=== PATIENT | female | born 1945 | race Caucasian/White ===

== ENCOUNTER 2018-09-09 14:06 | Inpatient (IN) ==
[2018-09-09] MEDS ORDERED: SODIUM CHLORIDE 0.9% 1000ML 1,000 ML IV ONE (14:46)
--- NOTE | 2018-09-09 14:59 | Emergency Department Note ---
Entered by Yolie Eisenberg acting as a scribe for Jah Zavaleta DO History of Present Illness General Chief complaint: Fever Stated complaint: FEVER - SENT FROM [facility] Time Seen by Provider: 09/09/18 14:13 Source: patient Mode of arrival: ambulatory Limitations: no limitations History of Present Illness Onset (ago): day(s) 2 Location: head (global), upper extremity (global) and lower extremity (global) Maximum Pain Intensity: 0 Associated symptoms: + fever/chills (The patient complains of fever. The patient denies chills. ), + loss of appetite, + malaise, + weakness and + other (The patient denies dysuria, urinary frequency, hematuria, URI symptoms, abdominal pain, changes in bowel movements, body aches, and lightheadedness. ); no chest pain, no nausea/vomiting and no shortness of breath Treatments prior to arrival: other (650 Tylenol) The patient is a 73 year old female with a history of hypertension and hyperlipidemia who presents to the ED with complaints of a constant fever that onset 2 days ago. The patient states that she was referred to the ED by [facility]. She reports that she has felt weak for the past 2 days. The patient complains of weakness, malaise, and loss of appetite. The patient denies chills, dysuria, urinary frequency, hematuria, nausea, vomiting, URI symptoms, chest pain, shortness of breath, abdominal pain, changes in bowel movements, body aches, and lightheadedness. The patient denies fever but had a temperature of 101.4 degrees at [facility]. She received 650 mg of Tylenol. The patient had a negative chest x-ray and UA that showed ketones, moderate to large blood, and proteins. The patient states that she fell last night while getting up from a chair because she lost her balance. She denies hitting her head. The patient notes that she takes Metoprolol. She denies smoking, drinking, and drug use. Home Medications Home Medications Medication Instructions Recorded Confirmed Type atorvastatin 80 mg PO DAILY 09/09/18 09/09/18 History metoprolol succinate 25 mg PO DAILY 09/09/18 09/09/18 History Allergies Allergy/AdvReac Type Severity Reaction Status Date / Time No Known Allergies Allergy Unverified 09/09/18 14:43 Past Med/Surg History Medical History HTN (hypertension) HLD (hyperlipidemia) No pertinent family history Surgical History No pertinent past surgical history Family History Other No pertinent family history Social History Preferred Language: Malay Communication Ability: Effective Visual Impairment: No Limitations Hearing Ability: Normal Feels Safe at Home: Yes Smoking Status: Never smoker Hx Alcohol Use: No Hx Substance Use: No Review of Systems See HPI for pertinent positives & negatives. and A total of 10 systems reviewed and were otherwise negative Physical Exam Vital Signs Vital Signs - 24 hr 09/09/18 14:09 09/09/18 15:33 09/09/18 16:23 Temperature 36.8 C Temperature Source Oral Sepsis Recent Fever Within 48 Hours No Sepsis Action Taken by Nursing No Action Required Pulse Rate 73 Pulse Rate [Left Finger] 58 L 60 Respiratory Rate 20 22 20 Respiratory Effort / Characteristics Non-Labored Non-Labored Respiratory Depth Normal Normal Respiratory Pattern Regular Regular Blood Pressure 114/66 Blood Pressure [Left Arm] 113/63 117/62 Blood Pressure Mean 82 Blood Pressure Mean [Left Arm] 79 80 Pulse Oximetry 95 93 93 Oxygen Delivery Method Room Air Room Air GENERAL: Patient is awake alert in no acute distress patient is resting comfortably and showing no signs of anxiety EYES: The conjunctivae are clear. The pupils are round and reactive. EARS, NOSE, MOUTH AND THROAT: The nose is without any evidence of any deformity. Mucous membranes are moist tongue is midline NECK: The neck is nontender and supple. RESPIRATORY: Normal respiratory effort is noted there is no evidence of wheezing rhonchi or rales CARDIOVASCULAR: Regular rate and rhythm noted there no murmurs rubs or gallops normal S1 normal S2 GASTROINTESTINAL: The abdomen is soft. Bowel sounds are present in all quadrants. Abdomen is nontender PELVIS: The Pelvis is stable. No tenderness to palpation is noted. SKIN: There is no obvious evidence of any rash. There are no petechiae, pallor o r cyanosis noted. NEUROLOGIC: Patient is awake alert and oriented x3 strength is symmetric patellar reflexes are 2+ bilaterally Course 1417: Past medical records reviewed. The patient was evaluated in room A10. A complete history and physical examination was performed. 1640: Call out to hospitalist service. 1605: I reviewed the patient's case with Juani Dyerist Arnold Arana. She will evaluate the patient for further management. Consultations Consultation #1: [id number]: I reviewed the patient's case with Juani Arana. She will evaluate the patient for further management. Time: 16:05 Administered Medications Discontinued Medications Doxycycline Hyclate (Vibramycin) 100 mg PO NOW STA Stop: 09/09/18 16:15 Last Admin: 09/09/18 16:57 Dose: 100 mg Documented by: [id number] Sodium Chloride (Nss 1000ml) 1,000 mls @ 999 mls/hr IV .Q1H1M ONE Stop: 09/09/18 15:46 Last Infusion: 09/09/18 16:21 Dose: 0 mls/hr Documented by: [id number] Admin: 09/09/18 14:59 Dose: 999 mls/hr Documented by: [id number] Ceftriaxone Sodium 1,000 mg/ (Dextrose) 60 mls @ 100 mls/hr IV NOW STA; Protocol Stop: 09/09/18 16:49 Last Admin: 09/09/18 16:57 Dose: 100 mls/hr Documented by: [id number] Medical Decision Making Differential Diagnosis Differential diagnoses: Viral syndrome, otitis, pharyngitis, pneumonia, influenza, meningitis, urinary tract infection, sepsis, bacteremia, as well as others were entertained. Medical Records Attestation: I reviewed the patient's medical records. Home Medications Current Medication List: was personally reviewed by me Laboratory Data Attestation: I reviewed the patient's lab results. Result diagrams: 09/09/18 14:54 09/09/18 14:54 Lab Results 09/09/18 09/09/18 09/09/18 Range/Units 14:46 14:54 14:54 WBC 4.24 L (4.8-10.8) K/uL RBC 4.45 (4.2-5.4) M/uL Hgb 13.8 (12.0-16.0) g/dL Hct 39.0 (37-47) % MCV 87.6 (80-100) fL MCH 31.0 (25-34) pg MCHC 35.4 (32-36) g/dL RDW Std Deviation 44.6 (36.4-46.3) fL RDW Coeff of Lucius 13.8 (11.5-14.5) % Plt Count 91 L (130-400) K/uL MPV 10.2 (7.4-10.4) fL Immature Gran % (Auto) 0.2 % Neut % (Auto) 82.6 % Lymph % (Auto) 13.4 % [place] % (Auto) 3.8 % Eos % (Auto) 0.0 % Baso % (Auto) 0.0 % Immature Gran # (Auto) 0.01 (0.00-0.02) K/uL Neut # (Auto) 3.50 (1.4-6.5) K/uL Lymph # (Auto) 0.57 L (1.2-3.4) K/uL [place] # (Auto) 0.16 (0.11-0.59) K/uL Eos # (Auto) 0.00 (0-0.5) K/uL Baso # (Auto) 0.00 (0-0.2) K/uL Toxic Vacuolation 2+ Platelet Estimate Decreased L (Normal) Giant Platelets 1+ Schistocytes Occasional ESR 24 H (0-21) mm/hr Sodium 129 L (136-145) mmol/L Potassium 3.5 (3.5-5.1) mmol/L Chloride 98 (98-107) mmol/L Carbon Dioxide 21 (21-32) mmol/L Anion Gap 9.0 (3-11) BUN 18 (7-18) mg/dl Creatinine 1.00 (0.6-1.2) mg/dl Est Cr Clr Drug Dosing 50.8 ml/min Est GFR ( Amer) 64.3 Est GFR (Non-Af Amer) 55.5 BUN/Creatinine Ratio 18.2 (10-20) Glucose 138 H (70-99) mg/dl Calcium 8.2 L (8.5-10.1) mg/dl Total Bilirubin 0.8 (0.2-1) mg/dl AST 56 H (15-37) U/L ALT 39 (12-78) U/L Alkaline Phosphatase 78 (45-117) U/L Troponin I 0.123 H* (0-0.045) ng/ml C-Reactive Protein 11.10 H (0-0.29) mg/dl Total Protein 7.0 (6.4-8.2) gm/dl Albumin 3.5 (3.4-5.0) gm/dl Globulin 3.5 (2.5-4.0) gm/dl Albumin/Globulin Ratio 1.0 (0.9-2) Lyme Disease IgG Ab (Negative) Lyme Disease IgM Ab (Negative) 09/09/18 Range/Units 15:04 WBC (4.8-10.8) K/uL RBC (4.2-5.4) M/uL Hgb (12.0-16.0) g/dL Hct (37-47) % MCV (80-100) fL MCH (25-34) pg MCHC (32-36) g/dL RDW Std Deviation (36.4-46.3) fL RDW Coeff of Lucius (11.5-14.5) % Plt Count (130-400) K/uL MPV (7.4-10.4) fL Immature Gran % (Auto) % Neut % (Auto) % Lymph % (Auto) % [place] % (Auto) % Eos % (Auto) % Baso % (Auto) % Immature Gran # (Auto) (0.00-0.02) K/uL Neut # (Auto) (1.4-6.5) K/uL Lymph # (Auto) (1.2-3.4) K/uL [place] # (Auto) (0.11-0.59) K/uL Eos # (Auto) (0-0.5) K/uL Baso # (Auto) (0-0.2) K/uL Toxic Vacuolation Platelet Estimate (Normal) Giant Platelets Schistocytes ESR (0-21) mm/hr Sodium (136-145) mmol/L Potassium (3.5-5.1) mmol/L Chloride (98-107) mmol/L Carbon Dioxide (21-32) mmol/L Anion Gap (3-11) BUN (7-18) mg/dl Creatinine (0.6-1.2) mg/dl Est Cr Clr Drug Dosing ml/min Est GFR ( Amer) Est GFR (Non-Af Amer) BUN/Creatinine Ratio (10-20) Glucose (70-99) mg/dl Calcium (8.5-10.1) mg/dl Total Bilirubin (0.2-1) mg/dl AST (15-37) U/L ALT (12-78) U/L Alkaline Phosphatase (45-117) U/L Troponin I (0-0.045) ng/ml C-Reactive Protein (0-0.29) mg/dl Total Protein (6.4-8.2) gm/dl Albumin (3.4-5.0) gm/dl Globulin (2.5-4.0) gm/dl Albumin/Globulin Ratio (0.9-2) Lyme Disease IgG Ab Negative (Negative) Lyme Disease IgM Ab Negative (Negative) ECG Data Attestation: I personally reviewed and interpreted this ECG as follows: Indication: weakness Rate (beats per minute): 68 Findings: + other (No acute ST segments); no ectopy Comparison ECG Date: no prior available Blood Pressure Blood Pressure Findings: Normal blood pressure MDM Narrative The patient is a 73-year-old female who presented to the emergency department for generalized weakness. The patient initially presented to an urgent care center was sent to the emergency department because of fever. The patient was found to have hematuria at the urgent care center. The patient was also found to have lab abnormalities which were felt to be consistent with tickborne illness. She was treated with IV fluids as well as IV antibiotics. We discussed patient's laboratory and radiographic studies with her. She was also found to have an elevated troponin. She had no EKG changes that I thought were consistent with pericarditis although given her acute condition it is possible this represents myocarditis. Because of this we discussed her case with the on- call [facility] hospitalist group. They have agreed to evaluate the patient in the emergency department for further management and disposition. Impression & Plan Fever, Thrombocytopenia, Elevated troponin, Anaplasmosis Discharge Plan Visit Data Chief Complaint: Fever Stated Complaint: FEVER - SENT FROM [facility] ED Provider: Jah Zavaleta ED Midlevel Provider: Katlin Farrell Discharge Problem: Fever, Thrombocytopenia, Elevated troponin, Anaplasmosis Patient Disposition: Being Evaluated by Hospitalist Forms Stand Alone Forms: My [facility] [place] Prescriptions Prescriptions: No Action atorvastatin 80 mg Tablet 80 mg PO DAILY RF: 0 metoprolol succinate 25 mg Tablet Extended Release 24 Hr 25 mg PO DAILY RF: 0 Referrals Referrals: PCP,NO [Primary Care Provider] - Discharge Problem: Fever Qualifiers: Fever type: unspecified Qualified Code(s): R50.9 - Fever, unspecified The scribe's documentation has been prepared under my direction and personally reviewed by me in its entirety. I confirm that the note above accurately reflects all work, treatment, procedures, and medical decision making performed by me.
[2018-09-09 15:22] LABS: Albumin Level 3.5 gm/dl (3.4-5.0); BUN Creatinine Ratio 18.2 (10-20); Calcium 8.2 mg/dl (8.5-10.1); Creatinine Clr Calc Pharmacy 50.8 ml/min; Est GFR (African American) 64.3; Est GFR (Non-African American) 55.5; Potassium 3.5 mmol/L (3.5-5.1)
[2018-09-09 15:35] LABS: Bilirubin,Total 0.8 mg/dl (0.2-1); Globulin 3.5 gm/dl (2.5-4.0); Troponin I 0.123 ng/ml (0-0.045)
[2018-09-09 15:42] LABS: Giant Platelets 1+; Hemoglobin 13.8 g/dL (12.0-16.0); Immature Granulocytes # (auto) 0.01 K/uL (0.00-0.02); Immature Granulocytes % (auto) 0.2 %; Lymphocytes # (auto) 0.57 K/uL (1.2-3.4); Lymphocytes % (auto) 13.4 %; Mean Corpuscular Hgb Conc 35.4 g/dL (32-36); Mean Corpuscular Volume 87.6 fL (80-100); Mean Platelet Volume 10.2 fL (7.4-10.4); Monocytes # (auto) 0.16 K/uL (0.11-0.59); Monocytes % (auto) 3.8 %; Neutrophils % (auto) 82.6 %; Platelet Count 91 K/uL (130-400); Platelet Estimate Decreased (Normal); RDW Coefficient of Variation 13.8 % (11.5-14.5); RDW Standard Deviation 44.6 fL (36.4-46.3); Red Blood Count 4.45 M/uL (4.2-5.4); Schistocytes Occasional; Toxic Vacuolation 2+; White Blood Count 4.24 K/uL (4.8-10.8)
[2018-09-09 15:52] LABS: C Reactive Protein 11.1 mg/dl (0-0.29)
[2018-09-09] MEDS ORDERED: cefTRIAXone SODIUM 1,000 MG in DEXTROSE 5% 50 ML IV STA (16:14)
[2018-09-09] MEDS ORDERED: DOXYCYCLINE HYCLATE 100 MG CAP PO STA (16:14)
[2018-09-09 16:45] LABS: Lyme Ab IgG w/WB Rflx Negative (Negative); Lyme Ab IgM w/WB Rflx Negative (Negative)
--- NOTE | 2018-09-09 16:45 | Emergency Department Note ---
ED Visit Note I assisted in the care of this patient with Dr. Zavaleta. Please see his note for further details. . Resident Activity Tracking Resident Involvement: Resident Care Provided Care Provided: Adult ED
--- NOTE | 2018-09-09 17:47 | History & Physical Report ---
Date of Service September 09, 2018 Assessment & Plan (1) Anaplasmosis: This is a 73-year-old female with PMH of HTN and HLD who presents with generalized weakness and fatigue x 3 days and is found to have suspected anaplasmosis. -Initially febrile today with leukopenia of 4, thrombocytopenia of 91, sodium 129 and AST of 56 -Peripheral smear ordered with official read pending -Anaplasmosis and Lyme serology ordered -Given Rocephin and doxycycline in ED -Continue doxycycline 100 mg twice daily, IV fluids -Monitor lab work (2) Elevated troponin: Troponin mildly elevated at 0.123 in the setting of suspected anaplasmosis -Denies chest pain, no history of CAD, no acute EKG changes -Trend troponin, monitor on telemetry (3) HTN (hypertension): Continue Toprol (4) HLD (hyperlipidemia): Continue atorvastatin DVT Ppx: SCDs in setting of acute thrombocytopenia Code status: FULL PCP: Sierra Dispo: Admitted to [facility]. Plan to return home once medically stable. Patient seen in collaboration with Dr. Wright. Please see addendum. History of Present Illness Chief Complaint: Generalized weakness, fatigue Primary Care Provider: JERICHO PCP This is a 73-year-old female with PMH of HTN and HLD who presents with generalized weakness and fatigue x 3 days. Patient has been feeling very tired and generally weak for the past 3 days with decreased appetite. Was seen by [facility] today and found to be febrile at 101.4 F. Was sent to ED for further evaluation. Upon arrival was found to have leukopenia 4k, thrombocytopenia of 91 and sodium of 129. Also found to have mild troponin elevation of 0.123. Peripheral smear was sent and radiologist called ED provider with concern for anaplasmosis. Patient denies any recent tick bites but states she lives in a [facility] area and when it be surprised if she got one. Has been outside a lot lately. Denies any chills, lightheadedness, headache, visual changes, chest pain, palpitations, shortness of breath, nausea, vomiting, abdominal pain, dysuria, diarrhea or constipation. Patient was given a dose of Rocephin and doxycycline in the ED along with IV fluids. Will be admitted for further treatment of suspected anaplasmosis. Allergies Allergy/AdvReac Type Severity Reaction Status Date / Time No Known Allergies Allergy Unverified 09/09/18 14:43 Home Medications Home Medications Medication Instructions Recorded Confirmed Type aspirin 81 mg PO DAILY 09/09/18 09/09/18 History atorvastatin 80 mg PO DAILY 09/09/18 09/09/18 History calcium-mag oxide-vitamin D3 1 cap PO DAILY 09/09/18 09/09/18 History cholecalciferol (vitamin D3) 2,000 unit PO DAILY 09/09/18 09/09/18 History coenzyme Q10 100 mg PO DAILY 09/09/18 09/09/18 History [id number]-vit C-Mn 1 tab PO DAILY 09/09/18 09/09/18 History loratadine 10 mg PO DAILY PRN 09/09/18 09/09/18 History magnesium 400 mg PO DAILY 09/09/18 09/09/18 History metoprolol succinate 25 mg PO DAILY 09/09/18 09/09/18 History omega-3 fatty acids 1,250 mg PO DAILY 09/09/18 09/09/18 History doxycycline hyclate 100 mg PO BID@1000,2200 8 Days #16 09/11/18 Rx cap Past Med/Surg History Medical History HTN (hypertension) (Chronic) HLD (hyperlipidemia) (Chronic) Surgical History No pertinent past surgical history (Chronic) Family History Other Heart disease Social History Preferred Language: Egyptian Communication Ability: Effective Visual Impairment: No Limitations Hearing Ability: Normal Nursing Professor Required: No Beliefs That Will Affect Care: None Current Living Situation: Alone Other Information That Helps Us Care for You: No Feels Safe at Home: Yes Safety Concerns: Feels Safe At This Time Smoking Status: Never smoker Do You Dip or Chew Tobacco: No Second Hand Exposure: No Tobacco Cessation Education Requested by Patient: No Hx Alcohol Use: Yes Hx Substance Use: No Review of Systems Review of Systems: At least ten systems reviewed and negative except as noted in the HPI. Physical Exam Physical Exam: General Appearance: WD/WN, no apparent distress, appears acutely ill Head: normocephalic, atraumatic Eyes: normal inspection, PERRL, EOMI ENT: hearing grossly normal, pharynx normal (dry mucous membranes) Neck: supple, no JVD, no adenopathy Respiratory/Chest: lungs clear to auscultation. No wheezes, rales or rhonci. No respiratory distress or accessory muscle use Cardiovascular: regular rate, rhythm, no murmur, normal peripheral pulses Abdomen/GI: normal bowel sounds, soft, non-tender to palpation Extremities/Musculoskelatal: normal inspection, no calf tenderness, normal capillary refill, no pedal edema Neurologic/Psych: alert, normal mood/affect, oriented x 3 Skin: normal color, warm/dry Results & Data Vital Signs (Past 12 Hours) Vital Signs Temp Pulse Pulse Resp BP BP Pulse Ox 09/09/18 16:23 60 20 117/62 93 09/09/18 15:33 58 L 22 113/63 93 09/09/18 14:09 36.8 C 73 20 114/66 95 Laboratory Results Short CBC 09/09/18 Range/Units 14:54 WBC 4.24 L (4.8-10.8) K/uL Hgb 13.8 (12.0-16.0) g/dL Hct 39.0 (37-47) % Plt Count 91 L (130-400) K/uL BMP 09/09/18 14:54 Sodium 129 L Potassium 3.5 Chloride 98 Carbon Dioxide 21 BUN 18 Creatinine 1.00 Glucose 138 H Calcium 8.2 L Cardiac Enzymes 09/09/18 Range/Units 14:54 Troponin I 0.123 H* (0-0.045) ng/ml Liver Function 09/09/18 Range/Units 14:54 Total Bilirubin 0.8 (0.2-1) mg/dl AST 56 H (15-37) U/L ALT 39 (12-78) U/L Alkaline Phosphatase 78 (45-117) U/L Albumin 3.5 (3.4-5.0) gm/dl Diagnostic Findings CXR: IMPRESSION: 1. Cardiomegaly and mild nonspecific interstitial thickening 2. No evidence of focal pulmonary consolidation Supervising Physician Co-Signing Physician Notes Attending Addendum: delayed entry date of service as noted above completed 09/13/18 care coordinated with THERESE Rhoades please refer to her notes for full details, I agree with her notes patient seen and examined, records reviewed by myself as well on exam, patient seen resting in bed, comfortable states she is tired feels somewhat better compared to admission no other symptoms VS noted and reviewed oriented x 3 , not in distress, speaks in sentences with no effort nor accessory muscle use normal rate, regular rhythm, no murmurs clear breath sounds bilaterally non distended, soft, nontender no bipedal edema, erythema, warmth no neuro deficits WBC 4.2 Hg 13.8 Crea 0.75 ASSESSMENT AND PLAN ANASPLASMOSIS monitor Plt, LFTs Doxycycline PO BID ELEVATED TROPONIN, MILD no cardiac symptoms EKG no acute ischemia trend troponins other diagnoses and plan of care as per THERESE Rhoades's notes Germán Wright MD
[2018-09-09] MEDS ORDERED: POLYETHYLENE (MIRALAX) 17 GM PACK PO PRN (19:03)
[2018-09-09] MEDS ORDERED: ONDANSETRON INJ 2 MG/ML 2 ML VIAL IV PRN (19:03)
[2018-09-09] MEDS ORDERED: ACETAMINOPHEN 325 MG TAB PO PRN (19:03)
[2018-09-09] MEDS ORDERED: SODIUM CHLORIDE 0.9% 1000ML 1,000 ML IV SCH (20:00)
--- NOTE | 2018-09-09 20:50 | XRay Report ---
XR chest 1V portable CLINICAL HISTORY: Fever COMPARISON STUDY: No previous studies for comparison. FINDINGS: The heart is mildly enlarged. There is no focal pulmonary consolidation. There are no pleur al effusions. There is mild nonspecific interstitial thickening.[ IMPRESSION: 1. Cardiomegaly and mild nonspecific interstitial thickening 2. No evidence of focal pulmonary consolidation Electronically signed by: Ildefonso Felix M.D. 09/09/2018 8:48 PM
[2018-09-09] MEDS ORDERED: DOXYCYCLINE HYCLATE 100 MG CAP PO SCH (21:00)
[2018-09-09 21:19] LABS: Appearance Urine Cloudy (Clear); Bacteria Urine Automated Negative (Negative); Bilirubin Urine Negative (Negative); Blood Urine 2+ (Negative); Color Urine Yellow; Epithelial Cell Urine Auto >30 /lpf (0-5); Glucose Urine UA Negative (Negative); Ketones Urine 1+ (Negative); Leukocyte Esterase Urine Negative (Negative); Nitrite Urine Negative (Negative); Protein Urine 1+ (Negative); Specific Gravity Urine 1.017 (1.000-1.030); Urobilinogen Urine Negative (Negative); pH Urine 5.5 (4.5-7.5)
[2018-09-09] MEDS: DOXYCYCLINE HYCLATE 100 MG CAP PO SCH (21:26)
[2018-09-09 21:34] LABS: Renal Epithelial Cells Urine 0-5 /lpf (0-5)
[2018-09-10 03:15] LABS: Hematocrit (blood only) 36.3 % (37-47); Hemoglobin 12.3 g/dL (12.0-16.0); Mean Corpuscular Hgb Conc 33.9 g/dL (32-36); Mean Corpuscular Volume 86.2 fL (80-100); RDW Coefficient of Variation 13.9 % (11.5-14.5); RDW Standard Deviation 44.1 fL (36.4-46.3); Red Blood Count 4.21 M/uL (4.2-5.4); White Blood Count 2.99 K/uL (4.8-10.8)
[2018-09-10 03:25] LABS: Mean Platelet Volume 11.1 fL (7.4-10.4); Platelet Count 82 K/uL (130-400)
[2018-09-10 03:32] LABS: BUN Creatinine Ratio 17.8 (10-20); Calcium 7.6 mg/dl (8.5-10.1); Est GFR (Non-African American) 78.5; Potassium 3.6 mmol/L (3.5-5.1)
[2018-09-10] MEDS: DOXYCYCLINE HYCLATE 100 MG CAP PO SCH ×2 (07:51→21:19)
[2018-09-10] MEDS: METOPROLOL SUCC 25MG EXT REL TAB PO SCH (07:52)
[2018-09-10] MEDS: CHOLECALCIFEROL 1,000 UNITS TAB PO SCH (07:52)
[2018-09-10] MEDS: ATORVASTATIN 40 MG TAB PO SCH (07:52)
[2018-09-10] MEDS: MAGNESIUM OXIDE 400 MG TAB PO SCH (07:52)
--- NOTE | 2018-09-10 10:31 | Hospitalist Progress Note ---
Date of Service September 10, 2018 Assessment & Plan (1) Anaplasmosis: This is a 73-year-old female with PMH of HTN and HLD who presents with generalized weakness and fatigue x 3 days and is found to have suspected anaplasmosis. Peripheral smear: Positive for cytoplasmic inclusion bodies Anaplasmosis serologies: Pending Lyme screen serologies: Negative Platelet count slightly decreased today as well as white count Afebrile Clinically improving, continue doxycycline p.o. (2) Elevated troponin: Troponin mildly elevated at 0.123 in the setting of suspected anaplasmosis -Denies chest pain, no history of CAD, no acute EKG changes -Troponins remaining at 0.1 No cardiac symptoms Will order echocardiogram Repeat EKG (3) HTN (hypertension): Continue Toprol (4) HLD (hyperlipidemia): Continue atorvastatin DVT Ppx: SCDs in setting of acute thrombocytopenia Code status: FULL PCP: Sierra Dispo: Admitted to [facility]. Plan to return home once medically stable. Discussed with patient at length in detail, all questions answered, she is understanding and agreeable with the plan of care Subjective Follow-up for anaplasmosis Resting in bed, comfortable, not in distress States she feels improved today compared to yesterday Denies headache, dizziness, chest pain, shortness of breath, palpitations, nausea vomiting No rashes noted Denies other symptoms next Review of Systems Review of Systems: All systems reviewed & are unremarkable except as noted in HPI & below Physical Exam Physical Exam: General- oriented x 3, not in distress, speaks in sentences with no effort or accessory muscle use Eyes- anicteric Neck- no JVD Lungs- clear breath sounds bilaterally, no rales/wheezes Heart- normal rate, regular rhythm; no murmurs Abdomen- normal bowel sounds, nondistended, soft, nontender Extremities- no pretibial edema, no calf tenderness Neuro- alert, oriented x 3; no gross focal neurologic deficits Skin- warm & dry Results & Data Vital Signs (Past 12 Hours) Vital Signs Temp Pulse Pulse Resp BP BP Pulse Ox 09/10/18 07:24 36.5 C 58 L 20 103/66 96 09/10/18 04:49 36.7 C 54 L 20 93/58 L 91 09/10/18 01:00 38.9 C H 09/10/18 00:00 74 09/09/18 23:39 39.5 C H 73 20 113/60 93 Laboratory Results Laboratory Results - last 24 hr 09/09/18 09/09/18 09/09/18 14:54 20:45 21:18 WBC RBC Hgb Hct MCV MCH MCHC RDW Std Deviation RDW Coeff of Lucius Plt Count MPV Blood Smear Review Sodium Potassium Chloride Carbon Dioxide Anion Gap BUN Creatinine Est Cr Clr Drug Dosing Est GFR ( Amer) Est GFR (Non-Af Amer) BUN/Creatinine Ratio Glucose Calcium Troponin I 0.114 H* Urine Color Yellow Urine Appearance Cloudy A Urine pH 5.5 Ur Specific [place] 1.017 Urine Protein 1+ H Urine Glucose (UA) Negative Urine Ketones 1+ H Urine Blood 2+ H Urine Nitrite Negative Urine Bilirubin Negative Urine Urobilinogen Negative Ur Leukocyte Esterase Negative Urine WBC (Auto) 10-30 H Urine RBC (Auto) 5-10 H U Hyaline Cast (Auto) 5-10 H U Epithel Cells (Auto) >30 H Urine Bacteria (Auto) Negative Ur Renal Epithelial Cell 0-5 Granular Casts 1-5 H Urine Yeast Not Reportable 09/10/18 09/10/18 09/10/18 02:53 02:53 02:53 WBC 2.99 L RBC 4.21 Hgb 12.3 Hct 36.3 L MCV 86.2 MCH 29.2 MCHC 33.9 RDW Std Deviation 44.1 RDW Coeff of Lucius 13.9 Plt Count 82 L MPV 11.1 H Blood Smear Review Sodium 133 L Potassium 3.6 Chloride 103 Carbon Dioxide 23 Anion Gap 7.0 BUN 13 Creatinine 0.75 Est Cr Clr Drug Dosing 68.0 Est GFR ( Amer) 91.0 Est GFR (Non-Af Amer) 78.5 BUN/Creatinine Ratio 17.8 Glucose 102 H Calcium 7.6 L Troponin I 0.181 H* Urine Color Urine Appearance Urine pH Ur Specific [place] Urine Protein Urine Glucose (UA) Urine Ketones Urine Blood Urine Nitrite Urine Bilirubin Urine Urobilinogen Ur Leukocyte Esterase Urine WBC (Auto) Urine RBC (Auto) U Hyaline Cast (Auto) U Epithel Cells (Auto) Urine Bacteria (Auto) Ur Renal Epithelial Cell Granular Casts Urine Yeast 09/10/18 09/10/18 09:10 15:00 WBC RBC Hgb Hct MCV MCH MCHC RDW Std Deviation RDW Coeff of Lucius Plt Count MPV Blood Smear Review Sodium Potassium Chloride Carbon Dioxide Anion Gap BUN Creatinine Est Cr Clr Drug Dosing Est GFR ( Amer) Est GFR (Non-Af Amer) BUN/Creatinine Ratio Glucose Calcium Troponin I 0.108 H* 0.102 H* Urine Color Urine Appearance Urine pH Ur Specific [place] Urine Protein Urine Glucose (UA) Urine Ketones Urine Blood Urine Nitrite Urine Bilirubin Urine Urobilinogen Ur Leukocyte Esterase Urine WBC (Auto) Urine RBC (Auto) U Hyaline Cast (Auto) U Epithel Cells (Auto) Urine Bacteria (Auto) Ur Renal Epithelial Cell Granular Casts Urine Yeast
[2018-09-11 07:39] LABS: Hematocrit (blood only) 36.2 % (37-47); Hemoglobin 12.6 g/dL (12.0-16.0); Mean Corpuscular Hgb Conc 34.8 g/dL (32-36); RDW Standard Deviation 44.2 fL (36.4-46.3); Red Blood Count 4.21 M/uL (4.2-5.4); White Blood Count 4.28 K/uL (4.8-10.8)
[2018-09-11 07:40] LABS: Mean Platelet Volume 11.3 fL (7.4-10.4); Platelet Count 78 K/uL (130-400)
[2018-09-11] MEDS: METOPROLOL SUCC 25MG EXT REL TAB PO SCH (08:07)
[2018-09-11 08:08] LABS: BUN Creatinine Ratio 17.3 (10-20); Calcium 8.3 mg/dl (8.5-10.1); Creatinine Clr Calc Pharmacy 70.8 ml/min; Est GFR (African American) 95.6; Est GFR (Non-African American) 82.5; Potassium 3.7 mmol/L (3.5-5.1)
[2018-09-11] MEDS: MAGNESIUM OXIDE 400 MG TAB PO SCH (08:08)
[2018-09-11] MEDS: ATORVASTATIN 40 MG TAB PO SCH (08:08)
[2018-09-11] MEDS: CHOLECALCIFEROL 1,000 UNITS TAB PO SCH (08:08)
[2018-09-11 09:47] LABS: Albumin Level 2.9 gm/dl (3.4-5.0); Bilirubin Direct 0.1 mg/dl (0-0.2); Bilirubin,Total 0.6 mg/dl (0.2-1)
[2018-09-11] MEDS: DOXYCYCLINE HYCLATE 100 MG CAP PO SCH (10:32)
--- NOTE | 2018-09-11 13:40 | Hospitalist Progress Note ---
Date of Service September 11, 2018 Assessment & Plan (1) Anaplasmosis: This is a 73-year-old female with PMH of HTN and HLD who presents with generalized weakness and fatigue x 3 days and is found to have suspected anaplasmosis. Peripheral smear: Positive for cytoplasmic inclusion bodies Anaplasmosis serologies: Pending Lyme screen serologies: Negative Platelet count slightly decreased today 80-90,000 AST slightly elevated 72 Afebrile, significantly improved since starting doxycycline Discharge plan: Doxycycline 100 mg p.o. twice daily x8 more days to complete 10 days treatment Repeat CBC and LFTs on follow-up with primary care physician this 09/13/2014 Dr. Mcnulty at 1245 (2) Elevated troponin: Troponin mildly elevated at 0.123 in the setting of suspected anaplasmosis -Denies chest pain, no history of CAD, no acute EKG changes -Troponin x2 more sets remain at at 0.1 EKG no signs of acute infarct or ischemia Echocardiogram: Pending - No cardiac symptoms (3) HTN (hypertension): Continue Toprol (4) HLD (hyperlipidemia): Continue atorvastatin Disposition: Follow-up with primary care physician as outlined above Discussed with patient at length in detail, all questions answered, she is understanding and agreeable with the plan of care Subjective Follow-up for anaplasmosis Seen resting in bed, comfortable, not in distress, in good spirits She feels better overall Denies fevers or chills, headache, dizziness, chest pain, shortness of breath Denies problems with ambulating No other symptoms Review of Systems Review of Systems: All systems reviewed & are unremarkable except as noted in HPI & below Physical Exam Physical Exam: General- oriented x 3, not in distress, speaks in sentences with no effort or accessory muscle use Eyes- anicteric Neck- no JVD Lungs- clear BS bilaterally, no crackles or wheezing Heart- normal rate, regular rhythm; no murmurs Abdomen- normal bowel sounds, nondistended, soft, nontender Extremities- no pretibial edema, no calf tenderness Neuro- alert, oriented x 3; no gross focal neurologic deficits Skin- warm & dry Results & Data Vital Signs (Past 12 Hours) Vital Signs Temp Pulse Resp BP BP Pulse Ox 09/11/18 07:30 36.7 C 45 L 18 123/77 94 09/11/18 04:51 36.9 C 82 20 110/70 95 Laboratory Results Laboratory Results - last 24 hr 09/10/18 09/11/18 09/11/18 15:00 07:30 07:30 WBC 4.28 L RBC 4.21 Hgb 12.6 Hct 36.2 L MCV 86.0 MCH 29.9 MCHC 34.8 RDW Std Deviation 44.2 RDW Coeff of Lucius 14.0 Plt Count 78 L MPV 11.3 H Sodium 137 Potassium 3.7 Chloride 104 Carbon Dioxide 24 Anion Gap 9.0 BUN 12 Creatinine 0.72 Est Cr Clr Drug Dosing 70.8 Est GFR ( Amer) 95.6 Est GFR (Non-Af Amer) 82.5 BUN/Creatinine Ratio 17.3 Glucose 90 Calcium 8.3 L Total Bilirubin Direct Bilirubin AST ALT Alkaline Phosphatase Troponin I 0.102 H* Total Protein Albumin 09/11/18 07:30 WBC RBC Hgb Hct MCV MCH MCHC RDW Std Deviation RDW Coeff of Lucius Plt Count MPV Sodium Potassium Chloride Carbon Dioxide Anion Gap BUN Creatinine Est Cr Clr Drug Dosing Est GFR ( Amer) Est GFR (Non-Af Amer) BUN/Creatinine Ratio Glucose Calcium Total Bilirubin 0.6 Direct Bilirubin 0.1 AST 72 H ALT 48 Alkaline Phosphatase 66 Troponin I Total Protein 6.0 L Albumin 2.9 L
--- NOTE | 2018-09-11 21:07 | Discharge Summary ---
Date of Service September 11, 2018 Admission HPI Per Admitting Provider This is a 73-year-old female with PMH of HTN and HLD who presents with generalized weakness and fatigue x 3 days. Patient has been feeling very tired and generally weak for the past 3 days with decreased appetite. Was seen by [facility] today and found to be febrile at 101.4 F. Was sent to ED for further evaluation. Upon arrival was found to have leukopenia 4k, thrombocytopenia of 91 and sodium of 129. Also found to have mild troponin elevation of 0.123. Peripheral smear was sent and radiologist called ED provider with concern for anaplasmosis. Patient denies any recent tick bites but states she lives in a [facility] the area and when it be surprised if she got one. Has been outside a lot lately. Denies any chills, lightheadedness, headache, visual changes, chest pain, palpitations, shortness of breath, nausea, vomiting, abdominal pain, dysuria, diarrhea or constipation. Patient was given a dose of Rocephin and doxycycline in the ED along with IV fluids. Will be admitted for further treatment of suspected anaplasmosis. Admission Exam Per Admitting Provider General Appearance: WD/WN, no apparent distress, appears acutely ill Head: normocephalic, atraumatic Eyes: normal inspection, PERRL, EOMI ENT: hearing grossly normal, pharynx normal (dry mucous membranes) Neck: supple, no JVD, no adenopathy Respiratory/Chest: lungs clear to auscultation. No wheezes, rales or rhonci. No respiratory distress or accessory muscle use Cardiovascular: regular rate, rhythm, no murmur, normal peripheral pulses Abdomen/GI: normal bowel sounds, soft, non-tender to palpation Extremities/Musculoskelatal: normal inspection, no calf tenderness, normal capillary refill, no pedal edema Neurologic/Psych: alert, normal mood/affect, oriented x 3 Skin: normal color, warm/dry Principal Diagnosis ANAPLASMOSIS Discharge Exam General- oriented x 3, not in distress, speaks in sentences with no effort or accessory muscle use Eyes- anicteric Neck- no JVD Lungs- clear BS bilaterally, no crackles or wheezing Heart- normal rate, regular rhythm; no murmurs Abdomen- normal bowel sounds, nondistended, soft, nontender Extremities- no pretibial edema, no calf tenderness Neuro- alert, oriented x 3; no gross focal neurologic deficits Skin- warm & dry Discharge Data Allergies Allergy/AdvReac Type Severity Reaction Status Date / Time No Known Allergies Allergy Unverified 09/09/18 14:43 Consultations 09/09/18 17:05 ED Decision to Admit Stat Hospital Course (1) Anaplasmosis: This is a 73-year-old female with PMH of HTN and HLD who presents with generalized weakness and fatigue x 3 days and is found to have suspected anaplasmosis. Peripheral smear: Positive for cytoplasmic inclusion bodies Anaplasmosis serologies: Pending Lyme screen serologies: Negative Platelet count slightly decreased 80-90,000 AST slightly elevated 72 Afebrile, significantly improved since starting doxycycline Discharge plan: Doxycycline 100 mg p.o. twice daily x8 more days to complete 10 days treatment Repeat CBC and LFTs on follow-up with primary care physician this 09/13/2014 Dr. Mcnulty at 1245 (2) Elevated troponin: possible Demand Ischemia Troponin mildly elevated at 0.123 in the setting of suspected anaplasmosis -Denies chest pain, no history of CAD, no acute EKG changes -Troponin x2 more sets remain at at 0.1 EKG no signs of acute infarct or ischemia Echocardiogram: EF 65-70% mild concentric left ventricular hypertrophy asymmetric left ventricular hypertrophy involving the base septum with a maximum thickness of 1.6cm left ventricular wall motion is normal grade 1 diastolic dysfunction (abnormal relaxation pattern) aortic valve sclerosis mild, without significant aortic valvular stenosis there is trace mitral regurgitation - No cardiac symptoms (3) HTN (hypertension): Continue Toprol (4) HLD (hyperlipidemia): Continue atorvastatin Disposition: Follow-up with primary care physician as outlined above Discussed with patient at length in detail, all questions answered, she is understanding and agreeable with the plan of care Total Time Total Time Spent Total Time Spent (In Minutes): 40 minutes Discharge Plan Discharge Items Patient Disposition: Home - Self-Care Reason For Visit: WEAKNESS, FEVER Discharge Diagnosis: Anaplasmosis infection Discharge Goals: Diagnostic testing and Therapeutic intervention Activity: As commented below Activity Comment: No heavy exertion until reevaluated by primary care physician Lifting: Wait until after follow-up appointment Exercise/Sports: Wait until after follow-up appointment Driving/Machine Use Comment: No driving until reevaluated with primary care physician Non-emergency contact: Primary Care Provider Call non-emergency contact if: you have any medication questions, your symptoms worsen and you have a fever Diet: Heart Healthy Addtl Provider Instructions: Follow-up with primary care physician Dr. Mcnulty on September 13, 2018 at 12:45 PM. Include yogurt and probiotics in a daily diet while on antibiotics and at least 1 week after completion of antibiotic course. Drink plenty fluids. Call primary care physician or return to the ER immediately if with worsening symptoms, fevers or chills, headache, muscle or joint pains, diarrhea. Prescriptions: New doxycycline hyclate 100 mg Capsule 100 mg PO BID@1000,2200 8 Days Qty: 16 RF: 0 Continued atorvastatin 80 mg Tablet 80 mg PO DAILY RF: 0 metoprolol succinate 25 mg Tablet Extended Release 24 Hr 25 mg PO DAILY RF: 0 aspirin 81 mg Tablet,Delayed Release (Dr/Ec) 81 mg PO DAILY RF: 0 loratadine 10 mg Tablet 10 mg PO DAILY PRN (Reason: Allergic Symptoms) RF: 0 magnesium 200 mg Tablet 400 mg PO DAILY RF: 0 coenzyme Q10 100 mg Capsule 100 mg PO DAILY RF: 0 [id number]-vit C-Mn 500-400-166.6 mg Tablet 1 tab PO DAILY RF: 0 calcium-mag oxide-vitamin D3 250-125-100 mg-mg-unit Capsule 1 cap PO DAILY RF: 0 omega-3 fatty acids 1,250 mg Capsule 1,250 mg PO DAILY RF: 0 cholecalciferol (vitamin D3) 2,000 unit Tablet 2,000 unit PO DAILY RF: 0 Stand-Alone Forms: [facility] Discharge Orders: Discharge Order (Routine); Ordered 09/11/18 Ordered By: Germán Wright Admission Data Admit Date/Time: 09/09/18 17:48 Attending Provider: Germán Wright Admit Provider: Germán Wright Primary Care Provider: Dagmar Jiménez Other Providers: Germán Wright Service: Telemetry Medical Other Interventions: Discharge Summary Assessment (RN) Last Done: 09/11/18 16:23 DC Date/Time DO NOT enter until pt leaves facility: 09/11/18 17:43
[2018-09-13 21:28] LABS: Anaplasma phagocytophila IgM <1:20 (<1:20); Ehrlichia chaff IgG Ab <1:64 (<1:64); Ehrlichia chaff IgM Ab <1:20 (<1:20)
== END 2018-09-11 17:43 | disposition home or self-care (01) | DRG 868 ==
LOC: ED 14:06 → 2W 17:48
DX: E78.5 Hyperlipidemia, unspecified; A77.49 Other ehrlichiosis; D69.6 Thrombocytopenia, unspecified; I24.8 Other forms of acute ischemic heart disease; I10 Essential (primary) hypertension; E87.1 Hypo-osmolality and hyponatremia